=== PATIENT | female | born 1980 | race Caucasian/White ===

== ENCOUNTER 2016-11-27 14:02 | Emergency (ER) | payer MEDICAID ==
[~2016-11-27] VITALS: Ht 161.3 cm; Wt 150.3 kg
[2016-11-27 14:17] VITALS: BP 132/62
[2016-11-27 14:34] VITALS: BP 128/80
--- NOTE | 2016-11-27 16:02 | NUR ---
Patient ambulated to bed 7. RN evaluating patient at bedside.
--- NOTE | 2016-11-27 16:10 | NUR ---
36/F BIB SELF HERE FOR LEFT SIDED ABDOMINAL PAIN X 1 WEEK. PT STATES WAS SEEN AT URGENT CARE TODAY, AND REFFERRED TO ER. PT STS GOT A CT A YEAR AGO, DX WITH IBS. PT STS TAKING DYCYCLOMINE RX 1 YEAR AGO. STS PAIN X1WK WITH L LOWER ABD HX: ANXIETY, HEART BURN, MIGRAINES. RX: XANAX, NEXIUM. STS HAS CONSTIPATION WITH URGES TO HAVE A BM. STOOL APPEARS MUCOUS -SMALL STONES.
--- NOTE | 2016-11-27 17:40 | NUR ---
PT BACK FROM CT WITH
--- NOTE | 2016-11-27 17:48 | NUR ---
LAB AT BEDSIDE.
[2016-11-27 17:51] LABS: BASOPHILS # (AUTO) 0.4 K/uL (0.00-0.22); EOSINOPHILS # (AUTO) 0.4 K/uL (0-0.4); HEMATOCRIT 36.6 % (36-48); HEMOGLOBIN 11.6 g/dL (12.0-16.0); LYMPHOCYTES # (AUTO) 3.6 K/uL (2.5-16.5); MEAN CORPUSCULAR HEMOGLOBIN 24 pg (27-31); MEAN CORPUSCULAR HGB CONC 32 g/dL (33-37); MEAN CORPUSCULAR VOLUME 74 fL (80-94); MONOCYTES # (AUTO) 0.6 K/uL (0.8-1.0); NEUTROPHILS # (AUTO) 3.5 K/uL (1.8-7.7); PLATELET COUNT (AUTO) 246 K/uL (140-450); RED BLOOD CELL COUNT(AUTO) 4.94 MIL/uL (4.20-5.40); RED CELL DISTRIBUTION WIDTH 16.6 % (11.6-13.7); WHITE BLOOD COUNT (AUTO) 8.5 K/uL (4.8-10.8)
[2016-11-27 18:07] LABS: ANION GAP 12.9 (8-16); CALCIUM 8.3 mg/dL (8.5-10.1); CARBON DIOXIDE 26.3 mmol/L (21-32); CREATININE 0.8 mg/dL (0.6-1.3); POTASSIUM 4.2 mmol/L (3.5-5.1)
[2016-11-27 18:13] LABS: ALBUMIN 3.4 g/dL (3.4-5.0); TOTAL BILIRUBIN 0.2 mg/dL (0.0-1.0); TOTAL PROTEIN, SERUM 7.5 g/dL (6.4-8.2)
[2016-11-27 18:50] VITALS: BP 130/81
--- NOTE | 2016-11-27 18:50 | NUR ---
Patient discharged with v/s stable. Written and verbal after care instructions given and explained. Patient alert, oriented and verbalized understanding of instructions. Ambulatory with steady gait. All questions addressed prior to discharge. ID band removed. Patient advised to follow up with PMD. Rx of PREDNISONE, MIRALAX, MOTRIN, NORCO given. Patient educated on indication of medication including possible reaction and side effects. Opportunity to ask questions provided and answered.
== END 2016-11-27 18:39 | disposition home or self-care (01) ==
LOC: MED 14:02
DX: K59.00 Constipation, unspecified (principal); Z88.5 Allergy status to narcotic agent; Z88.8 Allergy status to other drugs, medicaments and biological substances
CPT/HCPCS: 36415; 80053; 81002; 81025; 83690; 85025; 99285